=== PATIENT | female | born 1955 | race Caucasian/White ===

== ENCOUNTER → 2017-03-21 | Day surgery (SDC) | payer OTHER ==
[~2017-03-21] MED LIST: BUPIVACAINE/EPINEPHRINE 0.5% PF 10 ML VIAL ONE; CALC600T34 PO; EPINEPHrine HCL (1:1000) 30 MG/30 ML VIAL ONE; ESTR0.5T PO; KETOROLAC TROMETHAMINE 30 MG/ML (IVP) VIAL IV PUSH ONE; LACTATED RINGER'S 1000 ML INJ 1,000 ML ONE; LEVO.025 PO; LISI2.5T3 PO; MEVA40TA6 PO; MIDAZOLAM HCL 2 MG/2 ML VIAL ONE; OMEP20CA5 PO; ONDANSETRON HCL 4 MG/2 ML VIAL IV PUSH ONE; PARO10TA PO; PROPOFOL 200 MG/20 ML AMP IV ONE; TRIAMCINOLONE ACETONIDE 40 MG/ML VIAL ONE; Z.0.COMMODE-3:1; Z.0.CPM; Z.0.WALKERFRONT; ceFAZolin INJ 1,000 MG VIAL ONE
--- NOTE | 2017-03-21 21:25 | MP ---
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 BIOLOGY RESEARCH ASSISTANT SURGEON Aurelia Pedro MD BIOLOGY RESEARCH ASSISTANT ILYA Garcia BIOLOGY RESEARCH ASSISTANT ILYA Velasquez The surgical procedure was assisted by my Advanced Registered Nurse Practitioner. My CREEL CLEANER presence was necessary throughout this case for the manipulation and positioning of the surgical extremity. My CREEL CLEANER was assisting me throughout the duration of this procedure. The skill set of an Advance Registered Nurse Practitioner was medically necessary to complete this procedure. During the surgical case, the certified ophthalmic surgical assistant was working at the back table and the Advance Registered Nurse Practitioner was directly assisting me. PROCEDURE Left knee arthroscopy with extensive synovectomy of all three compartments. ANESTHESIA General anesthesia TOURNIQUET TIME 0 minutes PROCEDURE IN DETAIL The patient was brought back to the operative theater. She received intravenous Ancef. General anesthesia was administered. The left lower extremity was prepped and draped in usual sterile fashion. We started with a standard inferolateral portal. Once establishing the portal, we found 15 mL of clear effusion with no signs of infection. We then established an inferomedial portal under spinal needle visualization. We identified that there was significant scar tissue. We debrided in front of the knee. We identified that there was some perforation of the synovium in the medial portion of the knee with some of this subluxing into the joint between the distal femoral component and the polyethylene. We used a combination of ArthroCare wand and also oscillating shaver to perform a synovectomy in this area moving all of the tissue that was subluxing into the joint and we made sure that we removed all the red, inflamed synovial tissue in this area. There is no active bleeding in this area. We then debrided scar tissue that had built up on the lateral portion of the knee that was overriding the lateral femoral condyle. We did this also using the same instruments and then there was also some scar tissue that had developed just distal to the patella component with some impingement happening on the undersurface of the patella. Once we cleared off all three of these compartments performing a synovectomy in each of these compartments. We went around for further diagnostic evaluation. We found that all the visualized components including distal femur and the polyethylene appeared to be intact with no undue wear patterns noted. There was no instability about the knee. There was some scar in the box which was removed. We did not see any significant impingement around the base of the polyethylene where it articulates onto the tibial baseplate. The suprapatellar pouch was fairly unremarkable without significant synovitis. We gave interarticular injection of 40 mg of Kenalog with 20 mL of 0.25% Marcaine. Portals were closed with 2-0 Vicryl followed by 3-0 nylon. Postoperative plan is weight bear as tolerated and early range of motion. MD AGUSTIN Mayer/ /2:01 PM /9:15 PM
== END | disposition home or self-care (01) ==
LOC: ESDC 11:25
PROVIDERS: ATTEND Orthopaedic Surgery
DX: M65.9 Synovitis and tenosynovitis, unspecified (principal); M25.462 Effusion, left knee
CPT/HCPCS: 01400; 29876; J0171; J0690; J1885; J2250; J2405; J3010; J3301; J7120